=== PATIENT | male | born 1945 | race Two or more races ===

== ENCOUNTER 2023-08-11 14:51 | Emergency (ER) | payer MEDICARE, OTHER ==
[~2023-08-11] VITALS: Ht 177.8 cm; Wt 105.0 kg
[2023-08-11 14:54] VITALS: O2SAT 95
[2023-08-11] MEDS: ONDANSETRON 4MG ODT PO STA (15:22)
[2023-08-11 15:38] LABS: BASOPHILS % 0.3 % (0.0-2.0); DIFFERENTIAL COMMENT 0; EOSINOPHILS % 5.8 % (0.0-5.0); HEMOGLOBIN. 10.9 g/dL (14.0-18.0); LYMPHOCYTES % 31.7 % (20.0-50.0); MEAN CORPUSCULAR HEMOGLOBIN 31.1 pg (28.0-32.0); MEAN CORPUSCULAR HGB CONC 32.1 g/dL (31.0-37.0); MEAN PLATELET VOLUME 8.4 fl (7.4-10.4); NEUTROPHILS % 52.2 % (40.0-76.0); PLATELET 252 x1000/uL (130-400); WHITE BLOOD COUNT 6.5 x1000/uL (4.5-11.0)
[2023-08-11 15:44] LABS: CHLORIDE 104 mEq/L (98-107); POTASSIUM 4.3 mEq/L (3.5-5.1); SODIUM 140 mEq/L (136-145)
[2023-08-11 15:45] LABS: CARBON DIOXIDE 31 mEq/L (21-32)
[2023-08-11 15:46] LABS: CALCIUM 8.9 mg/dL (8.7-10.4)
[2023-08-11 15:50] LABS: UREA NITROGEN BLOOD 13 mg/dL (9-23)
[2023-08-11 15:57] LABS: GLUCOSE 121 mg/dL (70-105)
[2023-08-11 17:13] VITALS: BP 168/84; PULSE 76; RESP 14; TEMP 98.6
== END 2023-08-11 17:28 | disposition home or self-care (01) ==
LOC: ER 15:06
DX: R11.2 Nausea with vomiting, unspecified (principal); E11.9 Type 2 diabetes mellitus without complications
CPT/HCPCS: 99285; 71045; 80048; 85025; 36415; 74018; 93005; Q0162

== ENCOUNTER 2024-12-15 11:05 | Inpatient (IN) | payer OTHER, MEDICARE ==
[~2024-12-15] VITALS: Ht 185.4 cm; Wt 98.0 kg
[2024-12-15 11:25] VITALS: O2SAT 99
[2024-12-15 12:35] LABS: TROPONIN I HIGH SENSITIVITY 7 ng/L (3.0-53); UREA NITROGEN BLOOD 20 mg/dL (9-23)
[2024-12-15 12:37] LABS: ASPARTATE AMINOTRANSFERASE 11 IU/L (<34); BILIRUBIN DIRECT 0.1 mg/dL (<=3.0); BILIRUBIN TOTAL 0.4 mg/dL (0.1-1.0); PROTEIN TOTAL 6.4 g/dL (6.0-8.3)
[2024-12-15 12:38] LABS: BASOPHILS % 0.6 % (0.0-2.0); EOSINOPHILS % 4.2 % (0.0-5.0); HEMATOCRIT. 28.9 % (42.0-52.0); HEMOGLOBIN. 9.1 g/dL (14.0-18.0); LYMPHOCYTES % 23.1 % (20.0-50.0); MEAN PLATELET VOLUME 8.2 fl (7.4-10.4); MONOCYTES % 4.1 % (2.0-8.0); NEUTROPHILS % 68.0 % (40.0-76.0); PLATELET 231 x1000/uL (130-400); RED BLOOD CELL COUNT 3.15 mill/uL (4.7-6.1); RED CELL DISTRIBUTION WIDTH 17.0 % (11.6-14.6)
[2024-12-15 12:42] LABS: CREATININE 1.4 mg/dL (0.6-1.3)
[2024-12-15] MEDS: PIPERACILLIN/TAZO 3.375G/50ML 50 ML IV ONE (13:57)
[2024-12-15] MEDS: SODIUM CHLORIDE 0.9% 1,000 ML IV ONE (13:58)
[2024-12-15] MEDS: VANCOMYCIN 1G PREMIX 200 ML IV ONE (14:31)
[2024-12-15] MEDS ORDERED: DOCUSATE SODIUM 100MG CAPSULE PO PRN (14:45)
[2024-12-15] MEDS ORDERED: CLONIDINE 0.1MG TABLET PO PRN (14:45)
[2024-12-15] MEDS ORDERED: IPRATROPIUM/ALBUTEROL 0.5-3(2.5)MG/3ML NEB HHN PRN (14:45)
[2024-12-15] MEDS ORDERED: GUAIFENESIN 200MG/10ML SUGAR FREE UDC PO PRN (14:45)
[2024-12-15] MEDS ORDERED: DEXTROSE 50% WATER 50ML SYRINGE IV PRN (14:45)
[2024-12-15] MEDS ORDERED: HYDROCODONE/ACETAMINOPHEN 5/325MG TABLET PO PRN (14:45)
[2024-12-15] MEDS ORDERED: ACETAMINOPHEN 325MG TABLET PO PRN ×2 (14:45)
[2024-12-15] MEDS ORDERED: ONDANSETRON HCL 4MG/2ML INJ IV PRN (14:45)
[2024-12-15] MEDS ORDERED: VANCOMYCIN 1.25GM/250ML 250 ML IV SCH (15:00)
[2024-12-15] MEDS ORDERED: NALOXONE HCL 0.4MG/ML VIAL IV PRN (15:00)
[2024-12-15 15:35] LABS: CLARITY URINE CLEAR (CLEAR); GLUCOSE URINE NEGATIVE (NEGATIVE); KETONES URINE NEGATIVE (NEGATIVE); LEUKOCYTE ESTERASE URINE NEGATIVE (NEGATIVE); NITRITE URINE NEGATIVE (NEGATIVE); OCCULT BLOOD URINE TRACE (NEGATIVE); PH URINE 6.0 (4.5-8.0); PROTEIN URINE 1+ (NEGATIVE); SPECIFIC GRAVITY URINE 1.013 (1.005-1.030); UROBILINOGEN URINE 0.2 E.U./dL (0.2-1.0)
[2024-12-15 15:49] LABS: *AMPHETAMINES SCREEN URINE NEGATIVE (NEGATIVE); *BARBITURATES SCREEN URINE NEGATIVE (NEGATIVE); *BENZODIAZEPINES SCREEN URINE NEGATIVE (NEGATIVE); *COCAINE SCREEN URINE NEGATIVE (NEGATIVE); CANNABINOID URINE SCREEN NEGATIVE (NEGATIVE); ECSTASY MDMA SCREEN URINE NEGATIVE (NEGATIVE); METHADONE URINE SCREEN NEGATIVE (NEGATIVE); OPIATES URINE SCREEN NEGATIVE (NEGATIVE); PHENCYCLIDINE URINE SCREEN NEGATIVE (NEGATIVE)
[2024-12-15 16:07] LABS: COLOR URINE STRAW (YELLOW)
[2024-12-15 16:09] LABS: BACTERIA URINE NONE SEEN; RBC URINE 0-2 /hpf (0-2); SQUAMOUS EPITHELIAL CELL URINE RARE /lpf (RARE/1+); WBC URINE 0-2 /hpf (0-2)
[2024-12-15 16:10] LABS: HYALINE CASTS URINE 0-5 /lpf; MUCUS URINE TRACE /lpf (NONE/TRACE)
[2024-12-15] MEDS ORDERED: SIMV10TA97 PO (16:19)
[2024-12-15] MEDS ORDERED: AMLO10TA80 PO (16:19)
[2024-12-15] MEDS ORDERED: LOSA25TA26 PO (16:19)
[2024-12-15] MEDS ORDERED: ONDA-241 PO (16:19)
[2024-12-15 16:30] VITALS: BP 129/69; PULSE 73; RESP 18; TEMP 36.8; O2SAT 96
[2024-12-15 16:31] VITALS: BP 129/69; PULSE 73; RESP 18; TEMP 36.8072
[2024-12-15] MEDS: BLOOD SUGAR DIAGNOSTIC STRIP TEST SCH (16:36)
[2024-12-15] MEDS: INSULIN LISPRO 100 UNITS/ML SUBCUT SCH (16:37)
[2024-12-15] MEDS: FUROSEMIDE 40MG/4ML VIAL IVP SCH (17:06)
[2024-12-15] MEDS: LOSARTAN 25 MG TABLET PO SCH (17:06)
[2024-12-15] MEDS: ENOXAPARIN 40MG/0.4ML SYR SUBCUT SCH (17:07)
[2024-12-15] MEDS: SODIUM CHLORIDE 0.45% 1,000 ML IV SCH (17:08)
[2024-12-15] MEDS: VANCOMYCIN 1G PREMIX 200 ML IV SCH (18:35)
[2024-12-15 20:00] VITALS: BP_SYST 135; BP_SYST 138; BP_DIAS 64; BP_DIAS 68; PULSE 75; RESP 18; TEMP 36.8; O2SAT 98
[2024-12-15] MEDS ORDERED: PIPERACILLIN/TAZO 3.375G/50ML 50 ML IV SCH (22:00)
[2024-12-15] MEDS: CEFTRIAXONE 1GM/50ML 50 ML IV SCH (23:19)
[2024-12-16] VITALS: BP 130/80; RESP 18; TEMP 36.7; O2SAT 98
[2024-12-16 01:41] LABS: FOLIC ACID (FOLATE) SERUM > 20.00 ng/mL (>5.38)
[2024-12-16 04:00] VITALS: BP 121/59; PULSE 69; RESP 20; TEMP 36.8; O2SAT 98
[2024-12-16 07:48] LABS: BASOPHILS % 0.2 % (0.0-2.0); EOSINOPHILS % 2.5 % (0.0-5.0); HEMATOCRIT. 25.1 % (42.0-52.0); HEMOGLOBIN. 8.2 g/dL (14.0-18.0); LYMPHOCYTES % 41.9 % (20.0-50.0); MEAN PLATELET VOLUME 8.7 fl (7.4-10.4); MONOCYTES % 9.2 % (2.0-8.0); NEUTROPHILS % 46.2 % (40.0-76.0); PLATELET 210 x1000/uL (130-400); RED BLOOD CELL COUNT 2.78 mill/uL (4.7-6.1); RED CELL DISTRIBUTION WIDTH 17.1 % (11.6-14.6)
[2024-12-16 08:00] VITALS: BP 135/61; PULSE 66; RESP 18; TEMP 36.5; O2SAT 97
[2024-12-16 08:15] LABS: TROPONIN I HIGH SENSITIVITY 8 ng/L (3.0-53)
[2024-12-16 08:17] LABS: CREATININE 1.3 mg/dL (0.6-1.3)
[2024-12-16 08:18] LABS: LDL CHOLESTEROL 63 mg/dL (5-100); T4 FREE 1.09 ng/dL (0.89-1.76); TRIGLYCERIDE 108 mg/dL (0-150); UREA NITROGEN BLOOD 19 mg/dL (9-23)
[2024-12-16 08:19] LABS: ASPARTATE AMINOTRANSFERASE 11 IU/L (<34)
[2024-12-16 08:20] LABS: BILIRUBIN DIRECT 0.1 mg/dL (<=3.0); BILIRUBIN TOTAL 0.3 mg/dL (0.1-1.0); PROTEIN TOTAL 6.0 g/dL (6.0-8.3)
[2024-12-16] MEDS: AMLODIPINE 10MG TABLET PO SCH (08:55)
[2024-12-16] MEDS: SODIUM HYPOCHLORITE 0.125% 473ML SOLUTION TOP SCH (09:00)
[2024-12-16 12:00] VITALS: BP 124/69; PULSE 68; RESP 18; TEMP 36.5; O2SAT 97
[2024-12-16 16:00] VITALS: BP 119/60; PULSE 72; RESP 17; TEMP 36.8; O2SAT 100
[2024-12-16] MEDS: VANCOMYCIN 1.25GM/250ML 250 ML IV SCH (17:32)
[2024-12-16 20:00] VITALS: BP 125/62; PULSE 72; RESP 17; TEMP 36.9; O2SAT 99
[2024-12-16] MEDS: LEVETIRACETAM 500MG TABLET PO SCH (20:57)
[2024-12-17 01:00] VITALS: BP 101/52; PULSE 72; PULSE 84; RESP 19; TEMP 36.4; O2SAT 99
[2024-12-17 04:00] VITALS: BP 105/51; PULSE 85; RESP 19; TEMP 36.4; O2SAT 96
[2024-12-17 08:00] VITALS: BP 142/71; PULSE 73; RESP 18; TEMP 36.5; O2SAT 98
[2024-12-17 12:00] VITALS: BP_SYST 120; BP_SYST 83; BP_DIAS 39; BP_DIAS 59; PULSE 65; RESP 18; TEMP 36.7; O2SAT 98
[2024-12-17 16:00] VITALS: BP 125/64; PULSE 69; RESP 18; TEMP 37.3; O2SAT 95
[2024-12-17] MEDS: CEFTRIAXONE 1GM/50ML 50 ML IV SCH (18:01)
[2024-12-17 20:00] VITALS: BP 126/67; PULSE 75; RESP 18; TEMP 36.7; O2SAT 99
[2024-12-18] VITALS (7 sets, daily range): BP systolic 100–126; BP diastolic 52–75; PULSE 66–77; RESP 18; TEMP 36.4–36.7; O2SAT 97–99
[2024-12-18 09:27] LABS: CREATININE 1.3 mg/dL (0.6-1.3)
[2024-12-18 09:28] LABS: UREA NITROGEN BLOOD 17.0 mg/dL (9-23)
== END 2024-12-18 21:30 | disposition home or self-care (01) | DRG 291 ==
LOC: ER 11:22 → 8WST 13:34 → EDBEDREQ 13:50 → EDBEDREQTM 13:50 → ENRESERV 14:24
PROVIDERS: ADMIT Internal Medicine; ATTEND Internal Medicine
DX: I11.0 Hypertensive heart disease with heart failure (principal); I50.43 Acute on chronic combined systolic (congestive) and diastolic (congestive) heart failure; C18.9 Malignant neoplasm of colon, unspecified; N17.9 Acute kidney failure, unspecified; G93.40 Encephalopathy, unspecified; L97.528 Non-pressure chronic ulcer of other part of left foot with other specified severity; R56.9 Unspecified convulsions; D50.8 Other iron deficiency anemias; E11.621 Type 2 diabetes mellitus with foot ulcer; D64.81 Anemia due to antineoplastic chemotherapy; E11.51 Type 2 diabetes mellitus with diabetic peripheral angiopathy without gangrene; E83.51 Hypocalcemia; S91.302A Unspecified open wound, left foot, initial encounter; X58.XXXA Exposure to other specified factors, initial encounter; Z79.899 Other long term (current) drug therapy; Y93.89 Activity, other specified; Y92.89 Other specified places as the place of occurrence of the external cause; Y99.8 Other external cause status
CPT/HCPCS: 36415; 70551; 71045; 73630; 80048; 80061; 80076; 80202; 80305; 80320; 81003; 82550; 82728; 82746; 82962; 83036; 83540; 83550; 83605; 83735; 83880; 84145; 84439; 84443; 84484; 85025; 85044; 87070; 93005; 93970; 97166; 99291; A4606; A6449; J0696; J1650; J1815; J1938; J2543; J3373; J7030; G0480